=== PATIENT | female | born 1935 | race Caucasian/White ===

== ENCOUNTER 2017-08-01 12:07 | Inpatient (IN) | payer MEDICARE, OTHER ==
[2017-08-01 12:07] VITALS: BMI 33.2
[2017-08-01] MEDS ORDERED: Sodium Chloride 0.9% 500 ML IV ONE (13:12)
--- NOTE | 2017-08-01 13:17 | C.PDOC ---
History Of Present Illness 81 year old female, with PMHx of HTN, diabetes, hyperlipidemia, presents to ED for evaluation of dry cough, congestion, abdominal pain, nausea, vomiting, and headache for the last 5 days. Denies fever, or any other complaints at this time. Time Seen by Provider: 08/01/17 13:05 Chief Complaint (Nursing): Abdominal Pain History Per: Patient History/Exam Limitations: no limitations Onset/Duration Of Symptoms: Days (5) Current Symptoms Are (Timing): Still Present Location Of Pain/Discomfort: Diffuse Radiation Of Pain To:: None Quality Of Discomfort: "Pain" Associated Symptoms: Nausea, Vomiting. denies: Fever, Chills, Diarrhea, Loss Of Appetite, Back Pain, Chest Pain, Constipation, Urinary Symptoms Exacerbating Factors: None Alleviating Factors: None Recent travel outside of the [place]: No Additional History Per: Patient Abnormal Vaginal Bleeding: No Past Medical History Reviewed: Historical Data, Nursing Documentation, Vital Signs Vital Signs: Last Vital Signs Temp 97.8 F 08/01/17 17:23 Pulse 83 08/01/17 17:23 Resp 189 H 08/01/17 17:23 BP 125/76 08/01/17 17:23 Pulse Ox 95 08/01/17 16:52 - Medical History PMH: Anxiety, Depression, Diabetes, HTN, Hypothyroidism Denies: Chronic Kidney Disease Surgical History: Cholecystectomy - [facility] Procedures BUNIONECT/SFT/OSTEOTOMY (09/29/14) BUNIONECTOMY NEC (01/19/15) INJECT STEROID (12/01/14) INJECTION INTO JOINT (12/01/14) Family History: States: Unknown Family Hx - Social History Hx Tobacco Use: No Hx Alcohol Use: No Hx Substance Use: No - Immunization History Hx Tetanus Toxoid Vaccination: No Hx Influenza Vaccination: Yes Hx Pneumococcal Vaccination: Yes Review Of Systems Except As Marked, All Systems Reviewed And Found Negative. Constitutional: Negative for: Fever, Chills ENT: Positive for: Nose Congestion Cardiovascular: Negative for: Chest Pain, Palpitations Respiratory: Positive for: Cough. Negative for: Shortness of Breath Gastrointestinal: Positive for: Nausea, Vomiting, Abdominal Pain. Negative for : Diarrhea, Constipation Genitourinary: Negative for: Dysuria, Frequency, Hematuria Neurological: Positive for: Headache. Negative for: Dizziness Physical Exam - Physical Exam Appears: Non-toxic, No Acute Distress Skin: Normal Color, Warm, Dry Head: Atraumatic, Normacephalic Eye(s): bilateral: Normal Inspection Nose: Normal Oral Mucosa: Moist Neck: Normal ROM, Supple Chest: Symmetrical Cardiovascular: Rhythm Regular, No Murmur Respiratory: Normal Breath Sounds, No Rales, No Rhonchi, No Wheezing Gastrointestinal/Abdominal: Soft, Tenderness (mild epigastric), No Guarding, No Rebound Extremity: Normal ROM, No Pedal Edema Neurological/Psych: Oriented x3, Normal Speech ED Course And Treatment - Laboratory Results Result Diagrams: 08/01/17 13:30 08/01/17 13:30 O2 Sat by Pulse Oximetry: 97 (RA) Pulse Ox Interpretation: Normal Medical Decision Making Medical Decision Making: Blood work, urinalysis, influenza AB, CXR, EKG was ordered and reviewed. Patient was given Tylenol, Zofran, and IV fluids. Spoke with Dr. Vargas who accepts patient for admission for pneumonia and UTI. Disposition - Disposition Disposition: HOSPITALIZED Disposition Time: 04:00 Condition: STABLE - Clinical Impression Clinical Impression: Pneumonia, UTI (urinary tract infection) - Scribe Statement The provider has reviewed the documentation as recorded by the Scribe Jesse Richey All medical record entries made by the Scribe were at my direction and personally dictated by me. I have reviewed the chart and agree that the record accurately reflects my personal performance of the history, physical exam, medical decision making, and the department course for this patient. I have also personally directed, reviewed, and agree with the discharge instructions and disposition. Decision To Admit - Pt Status Changed To: Hospital Disposition Of: Inpatient - Admit Certification Admit to Inpatient:: After my assessment, the patient will require hospitalization for at least two midnights. This is because of the severity of symptoms shown, intensity of services needed, and/or the medical risk in this patient being treated as an outpatient. - InPatient: Physician Admission Certification:: pt withpneumoina, elderly with comorbities - . Bed Request Type: Regular Admitting Physician: Uyen Vargas Patient Diagnosis: Pneumonia, UTI (urinary tract infection)
[2017-08-01 13:34] LABS: BASO # 0.1 K/uL (0.0-0.2); EOS # 0.3 K/uL (0.0-0.7); EOS % 5.8 % (0.0-4.0); HEMOGLOBIN 14.5 g/dL (11.0-16.0); LYMPH # 0.9 K/uL (1.0-4.3); LYMPH % 17.9 % (20.0-40.0); MEAN CELL VOLUME 87.8 fL (81.0-99.0); MEAN CORPUSCULAR HEMOGLOBIN 29.6 pg (27.0-31.0); MEAN CORPUSCULAR HGB CONC 33.8 g/dL (33.0-37.0); MEAN PLATELET VOLUME 9.1 fL (7.2-11.7); MONO # 0.5 K/uL (0.0-0.8); MONO % 9.8 % (0.0-10.0); NEUT # 3.4 K/uL (1.8-7.0); NEUT % 65.5 % (50.0-75.0); RBC 4.88 Mil/uL (3.80-5.20); RED CELL DISTRIBUTION WIDTH 14.4 % (11.5-14.5); WHITE BLOOD COUNT 5.2 K/uL (4.8-10.8)
--- NOTE | 2017-08-01 13:41 | RAD ---
HISTORY: abd pain COMPARISON: Chest x-ray performed 12/07/15 TECHNIQUE: Chest PA and lateral FINDINGS: Examination limited by habitus. LUNGS: Retrocardiac atelectasis/infiltrate. Bilateral hilar prominence. Please note that chest x-ray has limited sensitivity for the detection of pulmonary masses. PLEURA: No significant pleural effusion identified. No definite pneumothorax . CARDIOVASCULAR: Borderline cardiomegaly. Ectatic aorta. Atherosclerotic calcifications. OSSEOUS STRUCTURES: Degenerative changes. Osseous demineralization. VISUALIZED UPPER ABDOMEN: Right upper quadrant surgical clips. OTHER FINDINGS: None. IMPRESSION: Mild retrocardiac atelectasis/infiltrate ; correlate clinically. Bilateral hilar prominence.
[2017-08-01] MEDS ORDERED: Azithromycin 500 MG in Sodium Chloride 0.9% 250 ML IVPB STA (13:42)
[2017-08-01] MEDS ORDERED: cefTRIAXone IV 1 gm in Dextros 50 ML IVPB ONE (13:42)
[2017-08-01] MEDS ORDERED: Sodium Chloride 0.9% 1,000 ML ONE (13:43)
[2017-08-01 13:48] LABS: ALB/GLOB RATIO 1.4 (1.0-2.1); ALBUMIN 4.5 g/dL (3.5-5.0); ALT/SGPT 64 U/L (9-52); AST/SGOT 52 U/L (14-36); BLOOD UREA NITROGEN 10 mg/dL (7-17); CALCIUM 8.6 mg/dl (8.6-10.4); GFR AFRICAN-AMERICAN > 60; GFR NON-AFRICAN AMERICAN > 60; LIPASE 231 U/L (23-300); PROTHROMBIN TIME 11.6 SECONDS (9.7-12.2)
[2017-08-01 13:59] LABS: B-TYPE NATRIURETIC PEPTIDE 32.9 pg/mL (0-900)
[2017-08-01 14:05] LABS: SQUAMOUS EPITHIAL 1 /hpf (0-5); URINE BACTERIA FEW (<OCC); URINE BILIRUBIN NEGATIVE (NEGATIVE); URINE BLOOD 2+ (NEGATIVE); URINE CLARITY Hazy (Clear); URINE COLOR Yellow (YELLOW); URINE GLUCOSE (UA) 3+ mg/dL (Normal); URINE LEUKOCYTE ESTERASE 3+ Leu/uL (Negative); URINE PROTEIN 1+ mg/dL (NEGATIVE); URINE UROBILINOGEN NORMAL mg/dL (0.2-1.0)
[2017-08-01] MEDS ORDERED: Iodixanol 320 MG/ML 100 ML BOTTLE IV ONE (14:32)
--- NOTE | 2017-08-01 15:15 | CT ---
PROCEDURE: CT HEAD WITHOUT CONTRAST. HISTORY: mabry COMPARISON: None available. TECHNIQUE: Axial computed tomography images were obtained through the head/brain without intravenous contrast. Radiation dose: Total exam DLP = 85.63 mGy-cm. This CT exam was performed using one or more of the following dose reduction techniques: Automated exposure control, adjustment of the mA and/or kV according to patient size, and/or use of iterative reconstruction technique. FINDINGS: HEMORRHAGE: No intracranial hemorrhage. BRAIN: Diffuse atrophy with prominence of the ventricles and sulci noted. No mass effect or edema. Intracranial atherosclerosis. Scattered periventricular and subcortical white matter hypodensities, which are nonspecific, but often seen with chronic microvascular ischemic disease. Please note that MRI with diffusion imaging is more sensitive in the detection of acute ischemic event. VENTRICLES: No hydrocephalus. CALVARIUM: Unremarkable. PARANASAL SINUSES: Unremarkable as visualized. No significant inflammatory changes. MASTOID AIR CELLS: Unremarkable as visualized. No inflammatory changes. OTHER FINDINGS: None. IMPRESSION: Nonspecific white matter changes. Generalized atrophy.
--- NOTE | 2017-08-01 15:46 | CT ---
PROCEDURE: CT Abdomen and Pelvis with contrast HISTORY: epigastric and llq pain COMPARISON: CT abdomen and pelvis without contrast performed 02/02/14 TECHNIQUE: Contrast dose: 100 mL Visipaque 320 Radiation dose: Total exam DLP = 748.10 mGy-cm. This CT exam was performed using one or more of the following dose reduction techniques: Automated exposure control, adjustment of the mA and/or kV according to patient size, and/or use of iterative reconstruction technique. FINDINGS: LOWER THORAX: No visible consolidation, pleural effusion, or pneumothorax. Small hiatal hernia/distal esophageal wall thickening. LIVER: Hypoattenuation of the liver compatible with hepatic steatosis. Too small to characterize hepatic hypodensity; statistically likely cysts. GALLBLADDER AND BILE DUCTS: Cholecystectomy. Common bile duct measures approximately 8 mm in diameter, within normal limits for patient's age and postcholecystectomy state. PANCREAS: Unremarkable. SPLEEN: Unremarkable. ADRENALS: Unremarkable. KIDNEYS AND URETERS: No obstructing calculus or hydronephrosis identified. VASCULATURE: No aortic aneurysm. BOWEL: Stomach is nondistended. Lack of oral contrast limits evaluation for bowel pathology. Bowel loops appear within normal limits of caliber without evidence of obstruction. APPENDIX: The appendix appears within normal limits of caliber. No secondary signs of acute appendicitis. PERITONEUM: No significant free fluid. No definite free air. LYMPH NODES: No bulky adenopathy identified. BLADDER: Distended urinary bladder. REPRODUCTIVE: Uterus is absent consistent with hysterectomy. BONES: Mild degenerative changes. OTHER FINDINGS: Small fat containing umbilical hernia. IMPRESSION: Hypoattenuation of the liver compatible with hepatic steatosis. Too small to characterize hepatic hypodensity; statistically likely cysts. Distended urinary bladder. Cholecystectomy. Hysterectomy. Additional findings as above.
[2017-08-01] MEDS: (Novolog) Insulin Aspart, Recombinant 100 u/ml 10 ml vial SC SCH (21:35)
--- NOTE | 2017-08-02 01:51 | HP ---
HISTORY OF PRESENT ILLNESS: The patient is 81-year-old female with history of multiple medical problems, presented to emergency room with respiratory symptoms for 4 days of cough associated with lower abdominal pain. The patient also admits that she lost her appetite and she feels nauseous. The patient was evaluated in emergency room, and she was found to have left retrocardiac infiltrate as well as urinary tract infection. Subsequently, the patient was admitted after failing of outpatient treatment for 4 days. Other review of system is negative. ALLERGIES: NO KNOWN ALLERGIES. MEDICATIONS: As per MAR. SOCIAL HISTORY No history of smoking, EtOH, or substance use. FAMILY HISTORY: Noncontributory. PHYSICAL EXAMINATION: GENERAL: The patient is in bed comfortable, not in any cardiopulmonary distress at the time of his examination. VITAL SIGNS: Blood pressure 125/76, temperature 97.8, respiratory rate 18, pulse 83. HEENT: Pupils equal and reactive to light. Normal appearing mucosa of the conjunctivae, oropharynx, and nasal membrane mucosa. NECK: Supple. No JVD. No carotid bruit. No lymph node. No thyromegaly. CHEST AND LUNGS: Bilateral symmetrical expansion. Good air exchange. No rales, no rhonchi. CARDIOVASCULAR SYSTEM: PMI not localized. S1 and S2. No additional sounds. ABDOMEN: Normoactive bowel sounds. No tenderness. No organomegaly. No masses. EXTREMITIES: No cyanosis, no clubbing, no edema. TEA ROOM MANAGER: Alert, awake, and oriented x2. No neurological deficit could be appreciated. ASSESSMENT: Pneumonia, urine tract infection, type 2 diabetes mellitus, hypothyroidism, hypertension. PLAN: We will give the patient Rocephin and azithromycin that was started in emergency room. Resume the patient's home medications. Accu-Cheks with insulin coverage as needed. Uyen Vargas MD
[2017-08-02] MEDS: (Novolog) Insulin Aspart, Recombinant 100 u/ml 10 ml vial SC SCH ×4 (07:36→23:36)
[2017-08-02] MEDS ORDERED: Levothyroxine 88 MCG TAB PO SCH (10:00)
[2017-08-02] MEDS: Azithromycin 500 MG in Sodium Chloride 0.9% 250 ML IVPB SCH (11:00)
--- NOTE | 2017-08-03 00:03 | PN ---
DATE: 08/02/2017 SUBJECTIVE: The patient is seen today, 08/02/2017, and she has less abdominal pain as well as less cough. OBJECTIVE: VITAL SIGNS: Blood pressure 137/74, temperature 98.5, respiratory rate 18, and pulse 71. HEENT: Pupils equal and reactive to light. Normal-appearing mucosa of the conjunctivae, oropharynx, and nasal membrane mucosa. NECK: Supple. No JVD. No carotid bruit. No lymph node. No thyromegaly. CHEST AND LUNGS: Bilateral symmetrical expansion. Good air exchange. No rales, no rhonchi. CARDIOVASCULAR SYSTEM: PMI not localized. S1, S2. No additional sounds. ABDOMEN: Normoactive bowel sounds. No tenderness. No organomegaly. No masses. EXTREMITIES: No cyanosis, no clubbing, no edema. HEADLINE WRITER: Alert, awake, and oriented x2. No neurological deficit could be appreciated. ASSESSMENT: 1. Pneumonia. 2. Urinary tract infection. 3. Uncontrolled type 2 diabetes mellitus. 4. Hypertension. 5. Hypothyroidism. PLAN: Continue current IV antibiotics and resume the patient's home medications. [facility] MD Sam
[2017-08-03 00:22] VITALS: O2SAT 95
[2017-08-03] MEDS ORDERED: guaiFENesin 200 mg/10 ml Syrup UD PO PRN (01:25)
[2017-08-03] MEDS ORDERED: Levothyroxine 88 MCG TAB PO SCH (06:30)
[2017-08-03] MEDS: (Novolog) Insulin Aspart, Recombinant 100 u/ml 10 ml vial SC SCH ×2 (08:17→12:43)
[2017-08-03] MEDS: Azithromycin 500 MG in Sodium Chloride 0.9% 250 ML IVPB SCH (10:58)
[2017-08-03 12:22] LABS: BASO % 0.9 % (0.0-2.0); EOS # 0.4 K/uL (0.0-0.7); EOS % 8.2 % (0.0-4.0); HEMOGLOBIN 14.1 g/dL (11.0-16.0); LYMPH # 1.2 K/uL (1.0-4.3); MEAN CELL VOLUME 87.7 fL (81.0-99.0); MEAN CORPUSCULAR HEMOGLOBIN 29.5 pg (27.0-31.0); MEAN CORPUSCULAR HGB CONC 33.6 g/dL (33.0-37.0); MEAN PLATELET VOLUME 9.3 fL (7.2-11.7); MONO # 0.8 K/uL (0.0-0.8); MONO % 15.1 % (0.0-10.0); NEUT # 2.7 K/uL (1.8-7.0); NEUT % 52.8 % (50.0-75.0); NRBC % 0.1 % (0.0-2.0); RBC 4.77 Mil/uL (3.80-5.20); RED CELL DISTRIBUTION WIDTH 14.6 % (11.5-14.5)
[2017-08-03 12:35] LABS: ALB/GLOB RATIO 1.2 (1.0-2.1); ALBUMIN 4.4 g/dL (3.5-5.0); ALT/SGPT 57 U/L (9-52); AST/SGOT 44 U/L (14-36); BLOOD UREA NITROGEN 13 mg/dL (7-17); CALCIUM 9.3 mg/dl (8.6-10.4); GFR AFRICAN-AMERICAN > 60; GFR NON-AFRICAN AMERICAN > 60
--- NOTE | 2017-08-03 14:16 | CP.PCM.PN ---
Subjective - Date & Time of Evaluation Date of Evaluation: 08/03/17 Time of Evaluation: 14:16 - Subjective Subjective: PATIENT WAS ADMITTED FOR PNA AND UTI AAOX3 DENIES ANY CHEST PAIN OR SOB NO SIGN OF DISTRESS NOTED Objective - Vital Signs/Intake and Output Vital Signs (last 24 hours): Temp Pulse Resp BP Pulse Ox 97.6 F 81 18 172/77 H 95 08/03/17 07:35 08/03/17 09:45 08/03/17 07:35 08/03/17 09:45 08/03/17 07:35 Intake and Output: 08/03/17 08/03/17 06:59 18:59 Intake Total 50 Balance 50 - Medications Medications: Current Medications Amitriptyline HCl (Elavil) 25 mg PO HS [facility] Last Admin: 08/02/17 22:02 Dose: 25 mg Amlodipine Besylate (Norvasc) 5 mg PO DAILY [facility] Last Admin: 08/03/17 09:46 Dose: 5 mg Aspirin (Ecotrin) 81 mg PO DAILY [facility] Last Admin: 08/03/17 09:46 Dose: 81 mg Bethanechol Chloride (Urecholine) 10 mg PO BID [facility] Last Admin: 08/03/17 09:47 Dose: 10 mg Glimepiride (Amaryl) 1 mg PO DAILY [facility] Last Admin: 08/03/17 09:46 Dose: 1 mg Guaifenesin (Robitussin) 200 mg PO Q4H PRN PRN Reason: Cough and congestion Last Admin: 08/03/17 01:33 Dose: 200 mg Azithromycin 500 mg/ Sodium (Chloride) 250 mls @ 250 mls/hr IVPB DAILY [facility] PRN Reason: Protocol Last Admin: 08/03/17 10:58 Dose: 250 mls/hr Ceftriaxone Sodium 1 gm/ (Sodium Chloride) 100 mls @ 100 mls/hr IVPB DAILY [facility] PRN Reason: Protocol Last Admin: 08/03/17 09:47 Dose: 100 mls/hr Insulin Aspart (Novolog) 0 unit SC ACHS [facility] PRN Reason: Protocol Last Admin: 08/03/17 12:43 Dose: 2 unit Levothyroxine Sodium (Synthroid) 88 mcg PO 0630 [facility] Last Admin: 08/03/17 06:35 Dose: 88 mcg Metformin HCl (Glucophage) 1,000 mg PO DAILY [facility] Last Admin: 08/03/17 09:46 Dose: 1,000 mg Perphenazine (Perphenazine) 2 mg PO BID [facility] Last Admin: 08/03/17 09:47 Dose: 2 mg Sitagliptin Phosphate (Januvia) 50 mg PO DAILY [facility] Last Admin: 08/03/17 09:46 Dose: 50 mg - Labs Labs: 08/03/17 12:14 08/03/17 12:14 PT 11.6 SECONDS (9.7-12.2) 08/01/17 13:30 INR 1.0 08/01/17 13:30 APTT 36 SECONDS (21-34) H 08/01/17 13:30 Assessment and Plan - Assessment and Plan (Free Text) Assessment: FOLLOW WITH DR PEARCE IN 1-2 WEEK AT HIS OFFICE ---CALL FOR APPOINTMENT CONTINUE ALL YOUR HOME MEDICATION NEW PRESCRIPTION GIVEN LEVAQUIN 500 MG ONE TAB BY MOUTH DAILY FOR 7 DAYS ACTIVITY TOLERATED CALL DR PEARCE OR GO TO THE EMERGENCY ROOM IF SYMPTOMS RETURN OR WORSENING
[2017-08-03 16:04] VITALS: BP 142/85; PULSE 86; RESP 20; TEMP 98.6
--- NOTE | 2017-08-04 18:36 | DS ---
REASON FOR ADMISSION: This is a 81-year-old female with history of multiple medical problems, was admitted for community-acquired pneumonia as well as urinary tract infection. COURSE OF HOSPITALIZATION: The patient was admitted to medical floor and she was started on Rocephin and azithromycin. The patient had blood cultures done that showed no growth. The patient remained afebrile and abdominal pain and cough were improving and the patient was discharged home on Levaquin 500 mg once a day for seven more days. FINAL DIAGNOSES: Pneumonia, urinary tract infection, hypothyroidism, type 2 diabetes mellitus, hypertension. [facility] MD Sam
== END 2017-08-03 17:00 | disposition home or self-care (01) | DRG 689 ==
LOC: C.ER 12:07 → C.9E 15:49 → C.5S 16:33
PROVIDERS: ADMIT Internal Medicine; ATTEND Internal Medicine
DX: N39.0 Urinary tract infection, site not specified (principal); J18.9 Pneumonia, unspecified organism; E11.65 Type 2 diabetes mellitus with hyperglycemia; E03.9 Hypothyroidism, unspecified; I10 Essential (primary) hypertension; E78.5 Hyperlipidemia, unspecified; F41.9 Anxiety disorder, unspecified; F32.9 Major depressive disorder, single episode, unspecified; Z90.49 Acquired absence of other specified parts of digestive tract; Z79.4 Long term (current) use of insulin

== ENCOUNTER 2017-08-20 12:45 | Emergency (ER) | payer MEDICARE, OTHER ==
[2017-08-20 13:00] VITALS: RESP 18; O2SAT 98; BMI 29.8
[2017-08-20] MEDS ORDERED: Sodium Chloride 0.9% 1,000 ML IV ONE (14:33)
--- NOTE | 2017-08-20 14:36 | C.PDOC ---
History Of Present Illness <Jerri Graham - Last Filed: 08/20/17 19:03> <Aurelio Infante - Last Filed: 08/20/17 19:52> 81 y/o female with history of DM, HLD and Depression presents to ED with complaints of headache, back pain, nausea and vomiting for 3 weeks. Patient was recently discharged from hospital, admitted for UTI an pneumonia. Patient saw PMD yesterday and states doctor gave her medication that did not improve symptoms. Patient states she took Advil at 10am this morning with mild relief but pain came back. At ED patient admits to nausea and denies diarrhea, fever, chills or any other complaints at this time. (Jerri Graham) History Per: Patient History/Exam Limitations: no limitations Onset/Duration Of Symptoms: Days Current Symptoms Are (Timing): Still Present <Jerri Graham - Last Filed: 08/20/17 19:03> <Aurelio Infante - Last Filed: 08/20/17 19:52> Time Seen by Provider: 08/20/17 13:25 Chief Complaint (Nursing): Headache Past Medical History Reviewed: Historical Data, Nursing Documentation, Vital Signs - Medical History PMH: Anxiety, Depression, Diabetes, HTN, Hypothyroidism Surgical History: Cholecystectomy Family History: States: No Known Family Hx - Social History Hx Tobacco Use: No Hx Alcohol Use: No Hx Substance Use: No - Immunization History Hx Tetanus Toxoid Vaccination: No Hx Influenza Vaccination: Yes Hx Pneumococcal Vaccination: Yes <Jerri Graham - Last Filed: 08/20/17 19:03> Vital Signs: Last Vital Signs Temp 97.6 F 08/20/17 12:52 Pulse 94 H 08/20/17 12:52 Resp 18 08/20/17 12:52 BP 126/76 08/20/17 12:52 Pulse Ox 98 08/20/17 19:04 - [facility] Procedures BUNIONECT/SFT/OSTEOTOMY (09/29/14) BUNIONECTOMY NEC (01/19/15) INJECT STEROID (12/01/14) INJECTION INTO JOINT (12/01/14) Review Of Systems Constitutional: Negative for: Fever, Chills Eyes: Negative for: Vision Change Cardiovascular: Negative for: Chest Pain Respiratory: Negative for: Shortness of Breath Gastrointestinal: Positive for: Nausea, Vomiting, Abdominal Pain Genitourinary: Negative for: Dysuria Musculoskeletal: Positive for: Back Pain Skin: Negative for: Rash Neurological: Positive for: Headache <Jerri Graham - Last Filed: 08/20/17 19:03> Physical Exam - Physical Exam Appears: Non-toxic, No Acute Distress Skin: Warm, Dry, No Rash Head: Atraumatic, Normacephalic Oral Mucosa: Moist Neck: Normal ROM, Supple Cardiovascular: Rhythm Regular Respiratory: Normal Breath Sounds, No Rales, No Rhonchi, No Wheezing Gastrointestinal/Abdominal: Soft, Tenderness (RUQ), No Guarding, No Rebound Back: No CVA Tenderness Extremity: Normal ROM, Capillary Refill (<2 seconds) Neurological/Psych: Oriented x3, Normal Speech <Jerri Graham - Last Filed: 08/20/17 19:03> ED Course And Treatment - Laboratory Results Result Diagrams: 08/20/17 14:43 08/20/17 14:43 O2 Sat by Pulse Oximetry: 98 (RA) Pulse Ox Interpretation: Normal Progress Note: ABdomen US,UA ordered. IV fluids administered <Jerri Graham - Last Filed: 08/20/17 19:03> - Laboratory Results Result Diagrams: 08/20/17 14:43 08/20/17 14:43 Pulse Ox Interpretation: Normal Progress Note: Patient was cleared for discharge by dr Zamora. Reevaluation Time: 19:52 Reassessment Condition: Improved <Aurelio Infante - Last Filed: 08/20/17 19:52> Medical Decision Making <Jerri Graham - Last Filed: 08/20/17 19:03> <Aurelio Infante - Last Filed: 08/20/17 19:52> Medical Decision Makinnd message left for Dr Vargas [address] Vargas; wants ab ct if sonogram negative; head ct and cxr; if all neg, crisis team for psychiatric eval. 630 pm discussed with crisis team; they will come see patient soon. to with mild residual wbc in ua, culture sent to be followed. (Jerri Graham) Disposition - Disposition Disposition Time: 19:03 <Jerri Graham - Last Filed: 08/20/17 19:03> Counseled Patient/Family Regarding: Studies Performed, Diagnosis, Need For Followup <Aurelio Infante - Last Filed: 08/20/17 19:52> - Disposition Referrals: Uyen Vargas MD [Staff Provider] - Condition: GOOD Instructions: Headache, Adult (DC) Forms: [employer] [facility] ([place]) - Clinical Impression Clinical Impression: Headache - PA / BACK ROLLER / Resident Statement MD/DO has reviewed & agrees with the documentation as recorded. - Scribe Statement The provider has reviewed the documentation as recorded by the Scribe <Jerri Graham - Last Filed: 08/20/17 19:03> <Aurelio Infante - Last Filed: 08/20/17 19:52> - Scribe Statement Alfredo Alexander All medical record entries made by the Scribe were at my direction and personally dictated by me. I have reviewed the chart and agree that the record accurately reflects my personal performance of the history, physical exam, medical decision making, and the department course for this patient. I have also personally directed, reviewed, and agree with the discharge instructions and disposition. (Jerri Graham) Physician Patient Turnover Patient Signed Over To: Aurelio Infante Handoff Comments: f/u with crisis consult; discuss dispopsition with Dr Vargas <Jerri Graham - Last Filed: 08/20/17 19:03>
[2017-08-20] MEDS ORDERED: Sodium Chloride 0.9% 1,000 ML ONE (14:46)
[2017-08-20 14:50] LABS: BASO # 0.1 K/uL (0.0-0.2); EOS # 0.1 K/uL (0.0-0.7); EOS % 0.7 % (0.0-4.0); HEMOGLOBIN 14.7 g/dL (11.0-16.0); LYMPH # 0.9 K/uL (1.0-4.3); LYMPH % 11.6 % (20.0-40.0); MEAN CELL VOLUME 87.3 fL (81.0-99.0); MEAN CORPUSCULAR HEMOGLOBIN 29.5 pg (27.0-31.0); MEAN CORPUSCULAR HGB CONC 33.8 g/dL (33.0-37.0); MONO # 0.5 K/uL (0.0-0.8); MONO % 6.8 % (0.0-10.0); NEUT # 6.2 K/uL (1.8-7.0); NEUT % 79.9 % (50.0-75.0); RBC 4.97 Mil/uL (3.80-5.20); RED CELL DISTRIBUTION WIDTH 14.1 % (11.5-14.5)
[2017-08-20 14:53] LABS: WHITE BLOOD COUNT 7.7 K/uL (4.8-10.8)
[2017-08-20 15:15] LABS: ALB/GLOB RATIO 1.2 (1.0-2.1); ALBUMIN 4.6 g/dL (3.5-5.0); ALT/SGPT 48 U/L (9-52); AST/SGOT 42 U/L (14-36); BLOOD UREA NITROGEN 14 mg/dL (7-17); CALCIUM 9.3 mg/dl (8.6-10.4); GFR AFRICAN-AMERICAN > 60; GFR NON-AFRICAN AMERICAN > 60; LIPASE 232 U/L (23-300)
[2017-08-20 16:25] LABS: SQUAMOUS EPITHIAL 3 /hpf (0-5); URINE BILIRUBIN NEGATIVE (NEGATIVE); URINE BLOOD NEGATIVE (NEGATIVE); URINE CLARITY Hazy (Clear); URINE GLUCOSE (UA) 2+ mg/dL (Normal); URINE LEUKOCYTE ESTERASE 1+ Leu/uL (Negative); URINE PROTEIN 2+ mg/dL (NEGATIVE); URINE UROBILINOGEN NORMAL mg/dL (0.2-1.0)
[2017-08-20 16:28] LABS: URINE COLOR YELLOW (YELLOW)
--- NOTE | 2017-08-20 17:01 | US ---
HISTORY: Right upper quadrant pain COMPARISON: Comparison made with prior CT scan abdomen pelvis 08/01/2017. Comparison also made with right upper quadrant ultrasound dated 02/02/2014 TECHNIQUE: Sonographic evaluation of the right upper quadrant of the abdomen. FINDINGS: LIVER: Liver is borderline/mildly enlarged measuring 18 cm in CC dimension. Liver demonstrates smooth contour and normal echotexture. No obvious hepatic mass or collection seen on images presented. The previously noted ( seen on prior CT scan abdomen pelvis dated 08/01/2017) low-attenuation foci possibly representing hepatic cysts are not appreciated on this study. . Please refer to prior CT scan of the abdomen pelvis and corresponding report for further details of these at aforementioned low-attenuation foci. GALLBLADDER: Changes of cholecystectomy again noted. COMMON BILE DUCT: Measures 8.0 mm. No stones. No dilatation. No sonographic Mckeon sign PANCREAS: Pancreas is poorly delineated on this exam due to body habitus and bowel gas. RIGHT KIDNEY: Measures 10.4 x 4.6 x 4.9 cm in length. Normal echogenicity. No calculus, mass, or hydronephrosis. AORTA: No aneurysmal dilatation. IVC: Unremarkable. OTHER FINDINGS: None . IMPRESSION: Status post cholecystectomy. Common bile duct measures approximately 8 mm. Previously noted low-attenuation foci scattered throughout the hepatic parenchyma, possibly representing riley hepatic cysts seen on recent CT scan not appreciated on this exam. Please refer to CT scan and corresponding report abdomen pelvis 08/01/2017
--- NOTE | 2017-08-20 18:02 | RAD ---
HISTORY: Back pain. Recent pneumonia. COMPARISON: Comparison made with prior chest radiograph dated 08/01/2017. TheNo prior. TECHNIQUE: Chest PA and lateral FINDINGS: LUNGS: No active pulmonary disease. Small calcified granuloma left lung apex again noted there appears to be some minor linear scarring in the right upper lung field PLEURA: No significant pleural effusion identified. No pneumothorax apparent. CARDIOVASCULAR: Heart size within range of normal. The Aorta is slightly ectatic and uncoiled. OSSEOUS STRUCTURES: Mild multilevel degenerative spondylosis of the thoracic spine. VISUALIZED UPPER ABDOMEN: Normal. OTHER FINDINGS: None. IMPRESSION: No acute consolidation. Small calcified granuloma left lung apex again noted.
--- NOTE | 2017-08-20 18:08 | CT ---
PROCEDURE: CT HEAD WITHOUT CONTRAST. HISTORY: Headache COMPARISON: Comparison made with prior CT scan brain 08/01/2017. TECHNIQUE: Axial computed tomography images were obtained through the head/brain without intravenous contrast. Radiation dose: Total exam DLP = 812.71 mGy-cm. This CT exam was performed using one or more of the following dose reduction techniques: Automated exposure control, adjustment of the mA and/or kV according to patient size, and/or use of iterative reconstruction technique. FINDINGS: HEMORRHAGE: No acute parenchymal, subarachnoid or extra-axial hemorrhage. BRAIN: Moderate diffuse/ confluent chronic periventricular white matter ischemic changes the seen extending peripherally into the deep and subcortical white matter both cerebral hemispheres. Moderate generalized volume loss. VENTRICLES: No obstructive hydrocephalus. CALVARIUM: There are no acute calvarial fractures. Hyperostosis frontalis interna present. PARANASAL SINUSES: Unremarkable as visualized. No significant inflammatory changes. MASTOID AIR CELLS: Unremarkable as visualized. No inflammatory changes. OTHER FINDINGS: None. IMPRESSION: No acute intracranial hemorrhage. Moderate chronic white matter ischemic changes. Moderate volume loss.
[2017-08-20 19:57] VITALS: BP 120/77; PULSE 89; TEMP 98.1
== END 2017-08-20 20:05 | disposition home or self-care (01) ==
LOC: C.ER 12:45
DX: R51 Headache (principal)
CPT/HCPCS: 70450; 71046; 76705; 80053; 81001; 83690; 85025; 87086; 96360; 99285; J7040

== ENCOUNTER 2018-03-29 10:34 | Emergency (ER) | payer MEDICARE, OTHER ==
[2018-03-29 10:34] VITALS: BMI 29.8
[2018-03-29 10:47] VITALS: TEMP 98.4
[2018-03-29] MEDS ORDERED: Albuterol 0.083% Inhal Sol (2.5 mg/3 mL) UD INH STA (11:02)
--- NOTE | 2018-03-29 11:02 | C.PDOC ---
History Of Present Illness 82 year old female presents to the ED for evaluation of new onset of shortness of breath for one week. Patient states symptoms are worse when she lays flat. She also reports pleuritic chest pain. Patient denies fever, chills, cough, dyspnea on exertion or history of asthma. ALSO CO L BREAST PAIN X 2 WEEKS. CONSTANT, NO TRAUMA. DENIES SWELL REDNESS DC. Time Seen by Provider: 03/29/18 10:50 Chief Complaint (Nursing): Chest Pain History Per: Patient History/Exam Limitations: no limitations Onset/Duration Of Symptoms: Other (1 week ) Current Symptoms Are (Timing): Still Present Quality: "Pain" Exacerbating Factor(s): Exertion Current Respiratory Medications: See Home Med List Associated Symptoms: Chest Pain (pleuritic ). denies: Fever, Chills Additional History Per: Patient Past Medical History Reviewed: Historical Data, Nursing Documentation, Vital Signs Vital Signs: Last Vital Signs Temp 98.4 F 03/29/18 10:45 Pulse 72 03/29/18 10:45 Resp 16 03/29/18 10:45 BP 135/81 03/29/18 10:45 Pulse Ox 97 03/29/18 10:45 - Medical History PMH: Anxiety, Depression, Diabetes, HTN, Hypothyroidism Denies: Chronic Kidney Disease Surgical History: Cholecystectomy - [facility] Procedures BUNIONECT/SFT/OSTEOTOMY (09/29/14) BUNIONECTOMY NEC (01/19/15) INJECT STEROID (12/01/14) INJECTION INTO JOINT (12/01/14) Family History: States: Unknown Family Hx - Social History Hx Tobacco Use: No Hx Alcohol Use: No Hx Substance Use: No - Immunization History Hx Tetanus Toxoid Vaccination: No Hx Influenza Vaccination: Yes Hx Pneumococcal Vaccination: Yes Review Of Systems Constitutional: Negative for: Fever, Chills Respiratory: Positive for: Shortness of Breath. Negative for: Cough Physical Exam - Physical Exam Appears: Non-toxic, No Acute Distress Skin: Normal Color, Warm, Dry, Other (L BREAST: NO SWELLING, MASS. +TEND 10-12 O CLOCK ABOVE NIPPLE. SKIN WNL. NO NIPPLE DIMPLING) Head: Atraumatic, Normacephalic Eye(s): bilateral: Normal Inspection Oral Mucosa: Moist Neck: Supple Chest: Symmetrical, No Deformity, No Tenderness Cardiovascular: Rhythm Regular, No Murmur Respiratory: Normal Breath Sounds, No Rales, No Rhonchi, No Wheezing, Other (tachypneic, speaking in full sentences ) Extremity: Normal ROM, Capillary Refill (less than 2 seconds ) Neurological/Psych: Oriented x3, Normal Speech, Normal Cognition ED Course And Treatment - Laboratory Results Result Diagrams: 03/29/18 11:27 03/29/18 11:27 ECG: Interpreted By Me, Viewed By Me ECG Rhythm: Sinus Rhythm, R BBB Interpretation Of ECG: Sinus Rhythm at 70bpm with right bundle branch block. Rate From EC O2 Sat by Pulse Oximetry: 97 (on RA) Pulse Ox Interpretation: Normal - Radiology CXR: Interpreted by Me CXR Interpretation: Yes: No Acute Disease Progress Note: Bloodwork, CXR, EKG ordered and reviewed. Albuterol INH given. Progress - Re-Evaluation Re-evaluation Note: 03/29/18 13:14 FEELS BETTER. PMD LUCIO REQUESTING DC HOME, WILL FU OFFICE 03/29/18 13:17 PT ADVISED FU PMD AND/OR OBGYN FOR MAMMO IF PERSIST PAIN - Data Reviewed Data Reviewed: Lab, Diagnostic imaging, EKG, Old records Disposition Counseled Patient/Family Regarding: Studies Performed, Diagnosis, Need For Followup, Rx Given - Disposition Referrals: Kashif Freed [Staff Provider] - Disposition: HOME/ ROUTINE Disposition Time: 13:15 Condition: IMPROVED Prescriptions: Albuterol HFA [Ventolin HFA 90 mcg/actuation (8 g)] 1 puff IH Q4 #1 inhaler Instructions: Shortness of Breath (Dyspnea) (DC) Forms: [employer] (Yakut) Print Language: TAMAZIGHT - Clinical Impression Clinical Impression: Dyspnea, Pain of breast - Scribe Statement The provider has reviewed the documentation as recorded by the Scribe (Clara Richey) Provider Attestation: All medical record entries made by the Scribe were at my direction and personally dictated by me. I have reviewed the chart and agree that the record accurately reflects my personal performance of the history, physical exam, medical decision making, and the department course for this patient. I have also personally directed, reviewed, and agree with the discharge instructions and disposition.
[2018-03-29] MEDS ORDERED: Albuterol-Ipratrop 3 mg / 0.5 (3 ml) UD ONE (11:19)
[2018-03-29 11:31] LABS: BASO # 0.1 K/uL (0.0-0.2); BASO % 1.1 % (0.0-2.0); EOS # 0.3 K/uL (0.0-0.7); EOS % 5.4 % (0.0-4.0); HEMOGLOBIN 13.7 g/dL (11.0-16.0); LYMPH # 1.9 K/uL (1.0-4.3); LYMPH % 31.6 % (20.0-40.0); MEAN CELL VOLUME 87.1 fL (81.0-99.0); MEAN CORPUSCULAR HEMOGLOBIN 29.5 pg (27.0-31.0); MEAN CORPUSCULAR HGB CONC 33.9 g/dL (33.0-37.0); MEAN PLATELET VOLUME 9.4 fL (7.2-11.7); MONO # 0.6 K/uL (0.0-0.8); MONO % 10.2 % (0.0-10.0); NEUT % 51.7 % (50.0-75.0); RBC 4.63 Mil/uL (3.80-5.20); RED CELL DISTRIBUTION WIDTH 14.5 % (11.5-14.5); WHITE BLOOD COUNT 5.9 K/uL (4.8-10.8)
[2018-03-29 11:46] LABS: ALB/GLOB RATIO 1.6 (1.0-2.1); ALBUMIN 4.3 g/dL (3.5-5.0); ALT/SGPT 53 U/L (9-52); AST/SGOT 43 U/L (14-36); BLOOD UREA NITROGEN 11 mg/dL (7-17); CALCIUM 9.1 mg/dl (8.6-10.4); GFR NON-AFRICAN AMERICAN > 60
[2018-03-29 12:03] LABS: B-TYPE NATRIURETIC PEPTIDE 41.6 pg/mL (0-900)
[2018-03-29 13:53] VITALS: BP 130/80; PULSE 65; RESP 18; O2SAT 96
--- NOTE | 2018-03-29 14:05 | RAD ---
HISTORY: SOB COMPARISON: Chest x-ray performed 08/20/17 TECHNIQUE: Chest PA and lateral FINDINGS: LUNGS: Emphysematous changes. No focal consolidation. 3 mm left upper lobe calcified granuloma. Please note that chest x-ray has limited sensitivity for the detection of pulmonary masses. PLEURA: No significant pleural effusion identified. No definite pneumothorax . CARDIOVASCULAR: Heart size appears within normal limits. Dense atherosclerotic calcification present. OSSEOUS STRUCTURES: Degenerative changes of the spine. VISUALIZED UPPER ABDOMEN: Unremarkable. OTHER FINDINGS: Cholecystectomy clips. IMPRESSION: No focal consolidation identified. Emphysematous changes. Left upper lobe calcified granuloma.
--- NOTE | 2018-03-30 17:12 | CARD ---
APPROVED REPORT Date of service: 03/29/2018 EKG Measurement Heart [id number] <Conclusion> Normal sinus rhythm Incomplete right bundle branch block Nonspecific T wave abnormality Abnormal ECG
== END 2018-03-29 13:52 | disposition home or self-care (01) ==
LOC: C.ER 10:34
DX: R06.00 Dyspnea, unspecified (principal); N64.4 Mastodynia; I10 Essential (primary) hypertension; E11.9 Type 2 diabetes mellitus without complications; E03.9 Hypothyroidism, unspecified; F41.9 Anxiety disorder, unspecified

== ENCOUNTER 2018-09-07 08:11 | Outpatient (CLI) | payer MEDICARE, OTHER | END 2018-09-07 09:33 | disposition still patient (30) | LOC: C.VASC 08:11 | DX: M79.604 Pain in right leg (principal); M79.605 Pain in left leg ==

== ENCOUNTER 2018-09-07 09:34 | Emergency (ER) | payer MEDICARE, OTHER ==
[2018-09-07 09:34] VITALS: BMI 33.4
[2018-09-07 09:48] VITALS: O2SAT 98
--- NOTE | 2018-09-07 10:30 | C.PDOC ---
History Of Present Illness 82 year old female presents to ED with complaint of new onset intermittent headache for the past 2 weeks. Pain is localized to the back of the head and neck and is persistent. She denies history of migraines and frequent headaches, despite stating that "she has headaches all the time." Patient was seen at [facility] on 08/27/18 for belly pain. Per ER record, no headache complaint noted. Patient took 400 mg of Advil with limited improvement. Patient's last dose was yesterday. Patient denies fever, changes in vision, weakness, and numbness. Time Seen by Provider: 09/07/18 09:53 Chief Complaint (Nursing): Headache History Per: Patient History/Exam Limitations: no limitations Onset/Duration Of Symptoms: Intermittent Episodes, Sudden Onset, Persistent, Other (2 weeks) Current Symptoms Are (Timing): Still Present Quality: "Pain" Preceeding Symptoms: None Associated Symptoms: denies: Photophobia, Extremity Weakness Past Medical History Reviewed: Historical Data, Nursing Documentation, Vital Signs Vital Signs: Last Vital Signs Temp 97.9 F 09/07/18 09:42 Pulse 89 09/07/18 09:42 Resp 22 09/07/18 09:42 BP 123/86 09/07/18 09:42 Pulse Ox 98 09/07/18 09:42 - Medical History PMH: Anxiety, Depression, Diabetes, HTN, Hypercholesterolemia, Hypothyroidism Denies: Chronic Kidney Disease Surgical History: Cholecystectomy - [facility] Procedures BUNIONECT/SFT/OSTEOTOMY (09/29/14) BUNIONECTOMY NEC (01/19/15) INJECT STEROID (12/01/14) INJECTION INTO JOINT (12/01/14) Family History: States: Unknown Family Hx - Social History Hx Tobacco Use: No Hx Alcohol Use: No Hx Substance Use: No - Immunization History Hx Tetanus Toxoid Vaccination: No Hx Influenza Vaccination: Yes Hx Pneumococcal Vaccination: Yes Review Of Systems Constitutional: Negative for: Fever, Weakness Eyes: Negative for: Vision Change Gastrointestinal: Negative for: Nausea, Vomiting Musculoskeletal: Positive for: Neck Pain Neurological: Positive for: Headache (back of the head). Negative for: Weakness, Numbness Physical Exam - Physical Exam Appears: Well, Non-toxic, No Acute Distress, Other (comfortable) Skin: Normal Color, Warm, Dry Head: Atraumatic, Normacephalic Eye(s): bilateral: Normal Inspection (no photophobia) Neck: Normal ROM, Supple Chest: Symmetrical, No Deformity Cardiovascular: Rhythm Regular, No Murmur Respiratory: No Accessory Muscle Use, No Rales, No Rhonchi, Other (NARD) Gastrointestinal/Abdominal: Soft, No Tenderness Extremity: Capillary Refill (<2 seconds) Extremity: Bilateral: Atraumatic, Normal Color And Temperature, Normal ROM Pulses: Left Radial: Normal, Right Radial: Normal Neurological/Psych: Oriented x3, Normal Speech, Normal Cognition, Cerebellar Signs, Normal Motor Gait: Steady ED Course And Treatment - Laboratory Results Result Diagrams: 09/07/18 11:02 09/07/18 11:02 O2 Sat by Pulse Oximetry: 98 (in RA) - CT Scan/US Head CT Other Rad Studies (CT/US): Interpreted By Me, Read By Radiologist CT/US Interpretation: IMPRESSION: No acute intracranial hemorrhage. Mild mode rate chronic white matter ischemic changes. Moderate generalized volume loss. Progress Note: Head CT ordered for patient. BMP and CBC ordered for patient. Patient given Magnesium Sulfate, Reglan, IV fluids, and Toradol. Progress - Re-Evaluation Re-evaluation Note: 09/07/18 11:33 FEELS BETTER NEURO INTACT VSS. CT NO ACUTE FINDINGS - Data Reviewed Data Reviewed: Lab, Diagnostic imaging, EKG, Old records Disposition Counseled Patient/Family Regarding: Studies Performed, Diagnosis, Need For Followup, Rx Given - Disposition Referrals: YOUR,PMD [Other] Disposition: HOME/ ROUTINE Disposition Time: 11:34 Condition: IMPROVED Additional Instructions: CONTINUAR ADVIL SARAH SE DIRIGE, COMBINAR CON TYLENOL Y REGLAN Prescriptions: Acetaminophen [Tylenol Extra Strength] 2 tab PO Q6 #30 tablet Metoclopramide [Reglan] 5 mg PO TID PRN #12 tab PRN Reason: Nausea/Vomiting Instructions: Headache, Adult (DC) Forms: [employer] (Panamanian) Print Language: ESTONIAN - Clinical Impression Clinical Impression: Headache - Scribe Statement The provider has reviewed the documentation as recorded by the Scribe (Micaela Shah) All medical record entries made by the Scribe were at my direction and personal ly dictated by me. I have reviewed the chart and agree that the record accurately reflects my personal performance of the history, physical exam, medical decision making, and the department course for this patient. I have also personally directed, reviewed, and agree with the discharge instructions and disposition.
[2018-09-07] MEDS ORDERED: Magnesium Sulfate 1 gm in D5W 1 GM/100 ML BAG IVPB STA (10:31)
[2018-09-07] MEDS ORDERED: Sodium Chloride 0.9% 500 ML IV ONE (10:31)
[2018-09-07] MEDS ORDERED: Magnesium Sulfate 1 gm in D5W 1 GM/100 ML BAG IVPB ONE (10:42)
[2018-09-07] MEDS ORDERED: Sodium Chloride 0.9% 1,000 ML ONE (10:42)
[2018-09-07 11:11] LABS: BASO % 0.7 % (0.0-2.0); EOS # 0.3 K/uL (0.0-0.7); EOS % 4.6 % (0.0-4.0); HEMOGLOBIN 12.8 g/dL (11.0-16.0); LYMPH # 1.8 K/uL (1.0-4.3); LYMPH % 30.9 % (20.0-40.0); MEAN CORPUSCULAR HEMOGLOBIN 29.9 pg (27.0-31.0); MEAN CORPUSCULAR HGB CONC 33.1 g/dL (33.0-37.0); MEAN PLATELET VOLUME 9.2 fL (7.2-11.7); MONO # 0.5 K/uL (0.0-0.8); MONO % 8.6 % (0.0-10.0); NEUT # 3.1 K/uL (1.8-7.0); NEUT % 55.2 % (50.0-75.0); RBC 4.27 Mil/uL (3.80-5.20); RED CELL DISTRIBUTION WIDTH 14.8 % (11.5-14.5); WHITE BLOOD COUNT 5.7 K/uL (4.8-10.8)
[2018-09-07 11:13] LABS: MEAN CELL VOLUME 90.1 fL (81.0-99.0)
--- NOTE | 2018-09-07 11:17 | CT ---
Date of service: 09/07/2018 PROCEDURE: CT HEAD WITHOUT CONTRAST. HISTORY: Headache COMPARISON: Comparison made with CT scan brain dated 08/20/2017. TECHNIQUE: Axial computed tomography images were obtained through the head/brain without intravenous contrast. Radiation dose: Total exam DLP = 1113.04 mGy-cm. This CT exam was performed using one or more of the following dose reduction techniques: Automated exposure control, adjustment of the mA and/or kV according to patient size, and/or use of iterative reconstruction technique. FINDINGS: HEMORRHAGE: No acute parenchymal, subarachnoid or extra-axial hemorrhage. BRAIN: Mild-moderate diffuse/confluent chronic periventricular white matter ischemic changes seen extending peripherally into the deep white matter both cerebral hemispheres. In addition, there are patchy ischemic changes seen scattered about the subcortical white matter. Note the possibility of a small hyperacute infarct cannot be excluded. Moderate generalized volume loss. VENTRICLES: Unremarkable. No hydrocephalus. CALVARIUM: Calvarium intact. Hyperostosis frontalis interna again noted. PARANASAL SINUSES: Unremarkable as visualized. No significant inflammatory changes. MASTOID AIR CELLS: Unremarkable as visualized. No inflammatory changes. OTHER FINDINGS: Changes of bilateral cataract surgery. IMPRESSION: No acute intracranial hemorrhage. Mild moderate chronic white matter ischemic changes. Moderate generalized volume loss.
[2018-09-07 11:26] LABS: CALCIUM 9.9 mg/dl (8.6-10.4)
[2018-09-07 12:00] VITALS: BP 116/71; PULSE 64; RESP 20; TEMP 98
== END 2018-09-07 11:59 | disposition home or self-care (01) ==
LOC: C.ER 09:34
DX: R51 Headache (principal)
CPT/HCPCS: 70450; 80048; 85025; 96365; 96375; 99284; J1885; J2765; J3475; J7040